=== PATIENT | male | born 1965 | race Caucasian/White ===

== ENCOUNTER 2021-10-16 07:30 | Inpatient (IN) | payer OTHER, SELFPAY ==
[2021-10-16] VITALS (7 sets, daily range): BP systolic 143–150; BP diastolic 87–97; PULSE 80–101; RESP 12–17; TEMP 37.1–37.2; O2SAT 96–100; BMI 28.8; BMI 29.0
--- NOTE | 2021-10-16 07:51 | US_ITS ---
WS: [id number]OTAL ULTRASOUND EXAMINATION CLINICAL INFORMATION: significant swelling/erythema COMPARISON: None. FINDINGS: TESTES Normal in size and echotexture, without focal lesion. Color Doppler: Normal color Doppler flow pattern. Right testes size: 5.3 cm x 3.0 cm x 2.1 cm. Left testes size: 4.9 cm x 3.0 cm x 2.7 cm. EPIDIDYMIDES Enlarged edematous LEFT epididymis with increased vascularity compatible with epididymitis. Right epididymis size: 1.3 cm x cm x cm. Left epididymitis size: 2.7 cm x 1.0 cm x cm. HYDROCELE None. VARICOCELE None. OTHER FINDINGS Incidental 5 x 6 mm LEFT testicular cyst US/US scrotum [id number] IMPRESSION: 1. Enlarged edematous LEFT epididymis with increased vascularity compatible wi th epididymitis. 2. Normal testicles bilaterally
--- NOTE | 2021-10-16 07:53 | W.ED.MALEGU ---
Documented by User: WONG Mark 10/16/21 10:14 HPI - Male Genitourinary General: Chief complaint: General Medical Stated complaint: Testicular Swelling Time Seen by Provider: 10/16/21 07:31 Source: patient Mode of arrival: ambulatory Limitations: no limitations History of Present Illness: Patient is a nice 56-year-old male who presents to ED today with a complaint of scrotal swelling/possible infection. Patient tells me 3 to 4 days ago he noticed a pimple-like lesion to his left testicle that he tried to squeeze/pop. He states since that time the swelling has gotten out of control . Patient tells me he is not a diabetic. He has no previous issues with infections. No known history of staph/MRSA. Patient is not having any penile drainage or dysuria. Any new sexual partners or concern for STDs. MD Complaint: testicle pain and testicle swelling Onset (ago): day(s) Duration: constant Location: right testicle and left testicle Relieving factors: none Associated symptoms: Reports no associated symptoms; Deny dysuria, nausea, urinary incontinence or vomiting Related Data: Sexually active: No Review of Systems Const: Denies: fever(s), chills, body aches, fatigue or malaise Card: Denies: chest pain Resp: Denies: dyspnea GI: Denies: abdominal pain, nausea, vomiting, diarrhea or change in bowel habits : Reports: scrotal swelling; Denies: flank pain, difficulty urinating, dysuria, urinary frequency, urinary urgency, urinary hesitancy or urinary incontinence Musc: Denies: back pain Skin/Breast: Denies: rash Neuro: Denies: headache(s) Physical Exam Const: COMMON NORMALS: no acute distress, average body habitus, patient oriented x3, no limitations, healthy appearing, alert and well nourished GENERAL APPEARANCE: cooperative ORIENTATION/CONSCIOUSNESS: Yes awake, Yes oriented to person, Yes oriented to place and Yes oriented to time HENMT: COMMON NORMALS: normocephalic and atraumatic HEAD & SCALP: normocephalic and atraumatic Resp: COMMON NORMALS: normal respiratory effort and clear to auscultation bilaterally AUSCULTATION: clear to auscultation bilaterally Cardio: COMMON NORMALS: regular rate and regular rhythm RATE: regular rate RHYTHM: regular rhythm GI: COMMON NORMALS: Normal to inspection, nondistended, normoactive bowel sounds present, Soft to palpation, non-tender, No hepatosplenomegaly present and no masses PALPATION: Yes Soft to palpation and Yes No hepatosplenomegaly present : COMMON NORMALS: Yes no CVA tenderness BLADDER/KIDNEY EXAM: Yes no CVA tenderness MEATUS: meatus normal SCROTUM: Yes Scrotal tenderness present, Yes erythematous, Yes edematous and Yes scrotal swelling OTHER: pt has significant scrotal swelling/redness/warmth affecting mainly left scrotum but extending into right; cellulitis does not extend onto abdomen, inguinal regions, or perineal regions; right testicle palpated and normal; left testicle could not be palpated secondary to the amount of swelling present Back/Pelvis: COMMON NORMALS: no CVA tenderness Extremity: COMMON NORMALS: normal to inspection Neuro: LEYDI COMA SCALE: document GCS findings Branch coma scale eye opening: Spontaneous Leydi coma scale verbal response: Orientated Branch coma scale motor response: Obey commands Branch coma scale total score: 15 COMMON NORMALS: patient oriented x3, moves all extremities, no focal motor deficits, no sensory deficits noted and gait normal SENSORIUM/ORIENTATION: Yes alert, Yes oriented to person, Yes oriented to place and Yes oriented to time Course Vital Signs: Vital signs: Vital Signs Temperature 98.7 F 10/16/21 07:45 Pulse Rate 95 10/16/21 07:47 Respiratory Rate 16 10/16/21 07:45 Blood Pressure 150/87 10/16/21 07:47 Pulse Oximetry 99 10/16/21 07:47 MDM - Male Medical Decision Making Patient has a significant scrotal cellulitis clinically. His vital signs are stable. White count is 14.8 with a normal lactate. He does have a CRP of over 140. Glucose is 221. Patient states he is not a known diabetic but it does run in his family. US of his scrotum shows a left epididymitis. I think at this point patient would benefit from hospitalization and IV antibiotics with urology consult. Dr. Powell will speak to hospitalist and Dr. Mc for admission. Lab Data : 10/16/21 08:03 10/16/21 08:03 Radiology Impressions Scrotum Ultrasound 10/16/21 07:51 IMPRESSION: 1. Enlarged edematous LEFT epididymis with increased vascularity compatible with epididymitis. 2. Normal testicles bilaterally Laboratory Results WBC 14.8 10^3/uL (4.0-10.0) H 10/16/21 08:03 RBC 4.60 10^6/uL (4.1-5.3) 10/16/21 08:03 Hgb 14.8 g/dL (11.7-16.6) 10/16/21 08:03 Hct 43.5 % (42.0-52.0) 10/16/21 08:03 MCV 94.6 fl (80-94) H 10/16/21 08:03 MCH 32.2 pg (28.0-34.0) 10/16/21 08:03 MCHC 34.0 g/dL (30.0-36.0) 10/16/21 08:03 RDW 12.4 % (12.1-15.1) 10/16/21 08:03 Plt Count 253 10^3/cmm (130-400) 10/16/21 08:03 MPV 9.4 fL (7.4-10.4) 10/16/21 08:03 Neut % (Auto) 78.1 % 10/16/21 08:03 Lymph % (Auto) 10.9 % 10/16/21 08:03 [place] % (Auto) 9.7 % 10/16/21 08:03 Eos % (Auto) 0.4 % 10/16/21 08:03 Baso % (Auto) 0.4 % 10/16/21 08:03 Neut # (Auto) 11.57 10^3/uL (1.8-7.7) H 10/16/21 08:03 Lymph # (Auto) 1.6 10^3/uL (0.8-4.8) 10/16/21 08:03 [place] # (Auto) 1.4 10^3/uL (0.2-0.9) H 10/16/21 08:03 Eos # (Auto) 0.1 10^3/uL (0.0-0.8) 10/16/21 08:03 Baso # (Auto) 0.1 10^3/uL (0.0-0.1) 10/16/21 08:03 Nucleated RBC % (auto) 0 % 10/16/21 08:03 Nucleated RBCs # 0.0 /100WBC 10/16/21 08:03 Sodium 139 mmol/L (136-145) 10/16/21 08:03 Potassium 3.8 mmol/L (3.5-5.1) 10/16/21 08:03 Chloride 100 mmol/L (98-107) 10/16/21 08:03 Carbon Dioxide 26 mmol/L (22-29) 10/16/21 08:03 Anion Gap 16.8 (5-19) 10/16/21 08:03 BUN 20 mg/dL (6-20) 10/16/21 08:03 Creatinine 0.8 mg/dL (0.7-1.2) 10/16/21 08:03 GFR Calculation 100.0 mL/min (90-130) 10/16/21 08:03 Glucose 221 mg/dL (65-115) H 10/16/21 08:03 Calculated Osmolality 297 mOsm/kg (285-295) H 10/16/21 08:03 Lactic Acid 1.1 mmol/L (0.5-2.2) 10/16/21 08:58 Calcium 8.7 mg/dL (8.5-10.5) 10/16/21 08:03 Total Bilirubin 0.7 mg/dL (0.15-1.2) 10/16/21 08:03 AST 14 U/L (0-40) 10/16/21 08:03 ALT 24 U/L (0-41) 10/16/21 08:03 Alkaline Phosphatase 69 IU/L (40-130) 10/16/21 08:03 C-Reactive Protein 141.7 mg/L (0.0-4.9) H 10/16/21 08:03 Total Protein 7.3 g/dL (6.6-8.7) 10/16/21 08:03 Albumin 4.6 g/dL (3.5-5.2) 10/16/21 08:03 Globulin 2.7 g/dL (1.3-4.6) 10/16/21 08:03 Urine Color Yellow (Yellow) 10/16/21 08:03 Urine Appearance Sl hazy (CLEAR) 10/16/21 08:03 Urine pH 5 (5-7) 10/16/21 08:03 Ur Specific [place] 1.025 (1.005-1.030) 10/16/21 08:03 Urine Protein 1+ (Negative) H 10/16/21 08:03 Urine Glucose (UA) 4+ (Normal) H 10/16/21 08:03 Urine Ketones 1+ (Negative) H 10/16/21 08:03 Urine Blood 2+ (Negative) H 10/16/21 08:03 Urine Nitrate Negative (Negative) 10/16/21 08:03 Urine Bilirubin Neg (Negative) 10/16/21 08:03 Urine Urobilinogen Norm mg/dL (Negative) 10/16/21 08:03 Ur Leukocyte Esterase Negative (Negative) 10/16/21 08:03 Urine RBC 5-10 /hpf (0-2) H 10/16/21 08:03 Urine WBC 0-4 /hpf (0-5) H 10/16/21 08:03 Ur Squamous Epith Cells 0-4 /hpf (0-5) H 10/16/21 08:03 Amorphous Sediment 2+ /hpf 10/16/21 08:03 Urine Bacteria Trace /hpf (NONE) 10/16/21 08:03 Urine Mucus 3+ /hpf 10/16/21 08:03 Discharge Plan Discharge Patient Disposition: Admitted As Inpatient Clinical Impression: Cellulitis of scrotum, Acute epididymitis, Hyperglycemia Condition: Stable Coding Level of Care Code ED Drywall Taper for Chg Fwd Exam Comprehensive Documented by User: Dionisio Powell DO 10/16/21 10:29 HPI - Male Genitourinary General: Chief complaint: General Medical Stated complaint: Testicular Swelling Time Seen by Provider: 10/16/21 07:31 Physical Exam Neuro: LEYDI COMA SCALE: document GCS findings Branch coma scale total score: 15 Course Vital Signs: Vital signs: Vital Signs Temperature 98.7 F 10/16/21 07:45 Pulse Rate 95 10/16/21 07:47 Respiratory Rate 16 10/16/21 07:45 Blood Pressure 150/87 10/16/21 07:47 Pulse Oximetry 99 10/16/21 07:47 MDM - Male Medical Decision Making Patient has a significant scrotal cellulitis clinically. His vital signs are stable. White count is 14.8 with a normal lactate. He does have a CRP of over 140. Glucose is 221. Patient states he is not a known diabetic but it does run in his family. US of his scrotum shows a left epididymitis. I think at this point patient would benefit from hospitalization and IV antibiotics with urology consult. Dr. Powell will speak to hospitalist and Dr. Mc for admission. Patient initially seen by WONG Mark. I seen patient reviewed the chart and examined the patient findings as documented by Ms. Walton. Agree with admission. Large amount of left scrotal swelling and tenderness no palpable abscess ultrasound does not show an abscess shows epididymitis clinical exam also shows significant cellulitis. Patient was started vancomycin we will add to ceftriaxone and doxycycline GC and chlamydia to be done as well. Discussed Dr. Mc and Dr. Barnes. Dr. Mc will admit Cameron to consult for his hyperglycemia. Medical Records I reviewed the patient's medical records. Lab Data I reviewed the patient's lab results. : 10/16/21 08:03 10/16/21 08:03 Radiology Impressions Scrotum Ultrasound 10/16/21 07:51 IMPRESSION: 1. Enlarged edematous LEFT epididymis with increased vascularity compatible with epididymitis. 2. Normal testicles bilaterally Laboratory Results WBC 14.8 10^3/uL (4.0-10.0) H 10/16/21 08:03 RBC 4.60 10^6/uL (4.1-5.3) 10/16/21 08:03 Hgb 14.8 g/dL (11.7-16.6) 10/16/21 08:03 Hct 43.5 % (42.0-52.0) 10/16/21 08:03 MCV 94.6 fl (80-94) H 10/16/21 08:03 MCH 32.2 pg (28.0-34.0) 10/16/21 08:03 MCHC 34.0 g/dL (30.0-36.0) 10/16/21 08:03 RDW 12.4 % (12.1-15.1) 10/16/21 08:03 Plt Count 253 10^3/cmm (130-400) 10/16/21 08:03 MPV 9.4 fL (7.4-10.4) 10/16/21 08:03 Neut % (Auto) 78.1 % 10/16/21 08:03 Lymph % (Auto) 10.9 % 10/16/21 08:03 [place] % (Auto) 9.7 % 10/16/21 08:03 Eos % (Auto) 0.4 % 10/16/21 08:03 Baso % (Auto) 0.4 % 10/16/21 08:03 Neut # (Auto) 11.57 10^3/uL (1.8-7.7) H 10/16/21 08:03 Lymph # (Auto) 1.6 10^3/uL (0.8-4.8) 10/16/21 08:03 [place] # (Auto) 1.4 10^3/uL (0.2-0.9) H 10/16/21 08:03 Eos # (Auto) 0.1 10^3/uL (0.0-0.8) 10/16/21 08:03 Baso # (Auto) 0.1 10^3/uL (0.0-0.1) 10/16/21 08:03 Nucleated RBC % (auto) 0 % 10/16/21 08:03 Nucleated RBCs # 0.0 /100WBC 10/16/21 08:03 Sodium 139 mmol/L (136-145) 10/16/21 08:03 Potassium 3.8 mmol/L (3.5-5.1) 10/16/21 08:03 Chloride 100 mmol/L (98-107) 10/16/21 08:03 Carbon Dioxide 26 mmol/L (22-29) 10/16/21 08:03 Anion Gap 16.8 (5-19) 10/16/21 08:03 BUN 20 mg/dL (6-20) 10/16/21 08:03 Creatinine 0.8 mg/dL (0.7-1.2) 10/16/21 08:03 GFR Calculation 100.0 mL/min (90-130) 10/16/21 08:03 Glucose 221 mg/dL (65-115) H 10/16/21 08:03 Calculated Osmolality 297 mOsm/kg (285-295) H 10/16/21 08:03 Lactic Acid 1.1 mmol/L (0.5-2.2) 10/16/21 08:58 Calcium 8.7 mg/dL (8.5-10.5) 10/16/21 08:03 Total Bilirubin 0.7 mg/dL (0.15-1.2) 10/16/21 08:03 AST 14 U/L (0-40) 10/16/21 08:03 ALT 24 U/L (0-41) 10/16/21 08:03 Alkaline Phosphatase 69 IU/L (40-130) 10/16/21 08:03 C-Reactive Protein 141.7 mg/L (0.0-4.9) H 10/16/21 08:03 Total Protein 7.3 g/dL (6.6-8.7) 10/16/21 08:03 Albumin 4.6 g/dL (3.5-5.2) 10/16/21 08:03 Globulin 2.7 g/dL (1.3-4.6) 10/16/21 08:03 Urine Color Yellow (Yellow) 10/16/21 08:03 Urine Appearance Sl hazy (CLEAR) 10/16/21 08:03 Urine pH 5 (5-7) 10/16/21 08:03 Ur Specific [place] 1.025 (1.005-1.030) 10/16/21 08:03 Urine Protein 1+ (Negative) H 10/16/21 08:03 Urine Glucose (UA) 4+ (Normal) H 10/16/21 08:03 Urine Ketones 1+ (Negative) H 10/16/21 08:03 Urine Blood 2+ (Negative) H 10/16/21 08:03 Urine Nitrate Negative (Negative) 10/16/21 08:03 Urine Bilirubin Neg (Negative) 10/16/21 08:03 Urine Urobilinogen Norm mg/dL (Negative) 10/16/21 08:03 Ur Leukocyte Esterase Negative (Negative) 10/16/21 08:03 Urine RBC 5-10 /hpf (0-2) H 10/16/21 08:03 Urine WBC 0-4 /hpf (0-5) H 10/16/21 08:03 Ur Squamous Epith Cells 0-4 /hpf (0-5) H 10/16/21 08:03 Amorphous Sediment 2+ /hpf 10/16/21 08:03 Urine Bacteria Trace /hpf (NONE) 10/16/21 08:03 Urine Mucus 3+ /hpf 10/16/21 08:03 Discharge Plan Discharge Patient Disposition: Admitted As Inpatient Clinical Impression: Cellulitis of scrotum, Acute epididymitis, Hyperglycemia Condition: Stable Coding Level of Care Code ED Drywall Taper for Magi Fwd Exam Comprehensive
[2021-10-16 08:09] LABS: Basophils # 0.1 10^3/uL (0.0-0.1); Basophils % 0.4 %; Eosinophils # 0.1 10^3/uL (0.0-0.8); Eosinophils % 0.4 %; Hematocrit 43.5 % (42.0-52.0); Hemoglobin 14.8 g/dL (11.7-16.6); Lymphocytes # 1.6 10^3/uL (0.8-4.8); Lymphocytes % 10.9 %; Mean Corpuscular Hemoglobin 32.2 pg (28.0-34.0); Mean Corpuscular Volume 94.6 fl (80-94); Mean Platelet Volume 9.4 fL (7.4-10.4); Monocytes # 1.4 10^3/uL (0.2-0.9); Monocytes % 9.7 %; Neutrophils # 11.57 10^3/uL (1.8-7.7); Neutrophils % 78.1 %; Nucleated Red Blood Cells % 0 %; Platelet Count 253 10^3/cmm (130-400); Red Cell Distribution Width 12.4 % (12.1-15.1); White Blood Count 14.8 10^3/uL (4.0-10.0)
[2021-10-16 08:31] LABS: Alanine Aminotransferase 24 U/L (0-41); Albumin Level 4.6 g/dL (3.5-5.2); Alkaline Phosphatase 69 IU/L (40-130); Anion Gap 16.8 (5-19); Aspartate Amino Transferase 14 U/L (0-40); Blood Urea Nitrogen 20 mg/dL (6-20); C Reactive Protein 141.7 mg/L (0.0-4.9); Calcium 8.7 mg/dL (8.5-10.5); Carbon Dioxide 26 mmol/L (22-29); Chloride 100 mmol/L (98-107); Globulin 2.7 g/dL (1.3-4.6); Glucose 221 mg/dL (65-115); Osmolality Calculated 297 mOsm/kg (285-295); Potassium 3.8 mmol/L (3.5-5.1); Sodium 139 mmol/L (136-145); Total Bilirubin 0.7 mg/dL (0.15-1.2); Total Protein 7.3 g/dL (6.6-8.7)
[2021-10-16] MEDS: vancomycin 1,000 MG in sodium chloride 0.9% 250 ML 250 MG IV (08:52)
--- NOTE | 2021-10-16 09:08 | PC.PHAR ---
pt states he takes care of his own medications-pt states he got a steroid shot on -pt states he takes gabapentin 300mg tid pt states its an old rx-called [facility] [facility] [place] [phone] they state they have never filled this medication for the pt ext med history doesnt show when last filled-notes are made in the pharmacy comments
[2021-10-16 09:23] LABS: Lactic Sepsis W/Reflex 1.1 mmol/L (0.5-2.2)
[2021-10-16 09:31] LABS: Protein Urine 1+ (Negative); Specific Gravity, Urine 1.025 (1.005-1.030); Urine Appearance SL Hazy (CLEAR); Urine Color Yellow (Yellow); pH Urine 5 (5-7)
[2021-10-16 09:32] LABS: Add Urine Culture? No; Add Urine Microscopic? YES; Amorphous Sediment Urine 2+ /hpf; Bacteria Urine TRACE /hpf; Bilirubin Urine Neg (Negative); Blood Urine 2+ (Negative); Glucose Urine UA 4+ (Normal); Ketones Urine 1+ (Negative); Leukocyte Esterase Urine Negative (Negative); Mucus Urine 3+ /hpf; Nitrate Urine Negative (Negative); Squamous Epithelial Cell Urine 0-4 /hpf (0-5); Urobilinogen Urine Norm (Negative); WBC Urine 0-4 /hpf (0-5)
[2021-10-16] MEDS: cefTRIAXone 1,000 MG in sodium chloride 0.9% (plus) 50 ML 100 MG IV (10:22)
--- NOTE | 2021-10-16 10:32 | PM.CONSULT ---
Providers/Reason For Consult Consulting Physician/Specialty*: Eligio Barnes MD, hospitalist Reason for Consult*: Elevated sugar Requesting Physician: Dr. Mc History of Present Illness History of Present Illness Anshul Craig is a 56 year old male who presented to the emergency department with complaints of swelling in the left scrotal area for the last 3 days. Perhaps some low-grade temperatures. No nausea, vomiting. Reports he felt a hard area behind the left testicle initially. Denies any particular injury. Denies any dysuria, discharge. Reports he has never had a history of diabetes. Does relate family history of diabetes. States he has some chronic back issues and got a steroid injection in his back last week. Review of Systems General: Reports: 10 or more systems reviewed and unremarkable except in HPI and below Const: Reports: fever(s); Denies: chills Eyes: Denies: change in vision ENMT: Denies: throat pain Card: Denies: chest pain Resp: Denies: dyspnea GI: Denies: abdominal pain : Denies: flank pain Skin/Breast: Denies: rash Neuro: Denies: headache(s) Psych: Denies: anxiety or depression Endo: Denies: polyuria Madan/Lymph: Denies: easy bruising All/Imm: Denies: urticaria Medications/Allergies Home Medications Medication Instructions Recorded Confirmed Last Taken Type albuterol sulfate 90 mcg/actuation 2 puff INHALATION Q6H PRN 10/16/21 10/16/21 Unknown History aerosol inhaler gabapentin 300 mg capsule 300 mg PO TID 10/16/21 10/16/21 10/16/21 06:00 History hydrocodone 10 mg-acetaminophen 1 tab PO Q4H PRN 10/16/21 10/16/21 10/16/21 06:00 History 325 mg tablet Allergies Allergy/AdvReac Type Severity Reaction Status Date / Time No Known Allergies Allergy Verified 10/16/21 09:05 PFSH Acute PFSH: Medical History (Updated 10/16/21 @ 13:32 by Eligio Barnes MD) Chronic back pain Surgical History (Updated 10/16/21 @ 13:33 by Eligio Barnes MD) History of back surgery Family History Other Diabetes Social History (Updated 10/16/21 @ 13:33 by Eligio Barnes MD) Smoking and tobacco status: never smoked Alcohol intake: current Alcohol intake frequency: 0-2 Drinks per Day Vitals/I&O/Wt Last Vital Signs Temp 98.7 F 10/16/21 07:45 Pulse 95 10/16/21 07:47 Resp 16 10/16/21 07:45 BP 150/87 10/16/21 07:47 Pulse Ox 99 10/16/21 07:47 10/15/21 10/16/21 10/16/21 22:59 06:59 14:59 Intake Total 250 / 250 Balance 250 / 250 Weight last 48 hrs Weight 93.894 kg Physical Exam Narrative: General exam is a white male, no distress HEENT: Pupils equally round. Oropharynx clear. Neck is supple no lymphadenopathy or thyromegaly Cardiovascular regular rate and rhythm, without murmur. No S3 or S4 Lungs clear no wheezing or crackles Abdomen is soft nontender positive bowel sounds. No obvious organomegaly exam demonstrates swollen left scrotum, with erythema and induration Extremities no cyanosis clubbing or edema, cap refill brisk Skin no rash Neuro no obvious focal deficits. Data : 10/16/21 08:03 10/16/21 08:03 Other Labs: LFTs are normal Hemoglobin A1c checked and 6.5 CRP 141 Urinalysis 5-10 reds, 0-4 whites Calcium and lactate are normal TSH checked and normal Scrotal ultrasound demonstrates enlarged edematous left epididymis with increased vascularity consistent with epididymitis Blood culture was obtained GC and Chlamydia cultures were ordered. Micro: Microbiology 10/16/21 08:25 Blood Culture - Preliminary Blood SPECIMEN COLLECTED A&P Assessment and plan (1) Acute epididymitis: Admitted to urology He received vancomycin, ceftriaxone, doxycycline in the emergency department. Defer antibiotic treatment to urology. Status: Acute (2) Hyperglycemia: Blood sugar elevated, 221 on admission. This was not fasting. Hemoglobin A1c has now been checked in 6.5. TSH is normal. He did receive an injection of steroids last week which could have impacted sugar as well Change to consistent carb diet Will need a hemoglobin A1c in 3 months Will consumer credit counselor him on possibility of metformin for prediabetes/diabetes At this point no need for sliding scale insulin. Check sugar with a.m. labs. Status: Acute (3) Chronic back pain: His Neurontin has been ordered which he takes chronically. Status: Acute Plan Thank you for this consultation. I will follow up tomorrow morning and determine if he would like to initiate metformin as an outpatient, and ensure his morning blood sugar is improved. Consult Attestations Medical Necessity Statement: As per primary Coding Level of Care Code Acute Security Engineer for [employer] Diagnoses Acute epididymitis N45.1 Hyperglycemia R73.9 Chronic back pain M54.9; G89.29
--- NOTE | 2021-10-16 10:56 | PM.HP ---
Providers/Chief Complaint Admitting Physician: Jesusita Chief Complaint: Left Epididymitis History of Present Illness Anshul Craig is a 56 year old male who I evaluated for the first time today at the request of Dr. Adam in the [facility] ED. Primary complaint was left hemiscrotal swelling ongoing and progressive over the last 3 to 4 days. He thought he had a pimple on the very posterior portion of his scrotum and made an attempt at drainage. The area of swelling though has occurred mostly involving the internal left hemiscrotal contents. Not a lot of pain. No fever or chills. Denies any voiding symptoms dysuria gross hematuria etc. no prior similar symptoms. Work-up: Scrotal ultrasound: Left hydrocele. No obvious scrotal wall or intra scrotal abscess. Findings are consistent with LEFT EPIDIDYMITIS. White count is 14 Glucose: 221 Creatinine: 0.8 Physical exam: Revealed left hemiscrotal erythema and swelling with induration of the contents involved in the left kidney scrotum/tunica vaginalis. There does not appear to be any obvious scrotal wall abscess but it cannot be completely ruled out. No evidence of drainage wound or perforation. Plan: Admit for antibiotics. Hospitalist consulted for evaluation of possible diabetes. Review of Systems Const: Denies: fever(s) or chills Eyes: Denies: eye discharge ENMT: Denies: hoarseness Card: Denies: chest pain Resp: Denies: dyspnea GI: Denies: abdominal pain or nausea : Denies: difficulty urinating, dysuria, urinary urgency, genital lesions or penile discharge Musc: Denies: joint warmth or deformity Skin/Breast: Reports: other (See HPI); Denies: rash Neuro: Denies: confusion or Slurred speech present Psych: Denies: anxiety or depression Madan/Lymph: Denies: enlarged lymph nodes All/Imm: Denies: acute wheezing Medications/Allergies Home Medications Medication Instructions Recorded Confirmed Last Taken Type albuterol sulfate 90 mcg/actuation 2 puff INHALATION Q6H PRN 10/16/21 10/16/21 Unknown History aerosol inhaler gabapentin 300 mg capsule 300 mg PO TID 10/16/21 10/16/21 10/16/21 06:00 History hydrocodone 10 mg-acetaminophen 1 tab PO Q4H PRN 10/16/21 10/16/21 10/16/21 06:00 History 325 mg tablet Allergies Allergy/AdvReac Type Severity Reaction Status Date / Time No Known Allergies Allergy Verified 10/16/21 09:05 PFSH Acute PFSH: Medical History Chronic back pain Surgical History History of back surgery Family History Other Diabetes Social History Smoking and tobacco status: never smoked Alcohol intake: current Alcohol intake frequency: 0-2 Drinks per Day Vitals/I&O/Wt Last Vital Signs Temp 98.7 F 10/16/21 07:45 Pulse 95 10/16/21 07:47 Resp 16 10/16/21 07:45 BP 150/87 10/16/21 07:47 Pulse Ox 99 10/16/21 07:47 10/15/21 10/16/21 10/16/21 22:59 06:59 14:59 Intake Total 250 / 250 Balance 250 / 250 Weight last 48 hrs Weight 207 lb Physical Exam Const: COMMON NORMALS: no acute distress, alert and well nourished GENERAL APPEARANCE: well kempt and well developed ORIENTATION/CONSCIOUSNESS: not confused Neck/C-Spine: COMMON NORMALS: full ROM GENERAL: Yes normal visual inspection Lymph: OTHER: No lymphadenopathy Resp: COMMON NORMALS: normal respiratory effort EFFORT & INSPECTION: No labored and No Actively coughing : OTHER: Circumcised phallus without lesion. No meatal discharge. Swollen scrotum with erythema. The left hemiscrotal contents are indurated and palpably abnormal. Mostly consistent with fluid within the tunica vaginalis on the left side. The right testicle and epididymis feels normal. No clear abscess. No scrotal wall abscess can be identified. No break in the skin or discharge Back/Pelvis: OTHER: No CVA tenderness Extremity: NARRATIVE EXTREMITY EXAM: Good range of motion. Neuro: SENSORIUM/ORIENTATION: Yes alert Psych: COMMON NORMALS: mental status grossly normal APPEARANCE: Yes grossly normal and Yes well kempt ATTITUDE: Yes calm and Yes engaged Skin: COMMON NORMALS: no rashes or lesions noted and no jaundice Data : 10/17/21 02:39 10/17/21 02:39 Micro: Microbiology 10/16/21 08:25 Blood Culture - Preliminary Blood SPECIMEN COLLECTED A&P Assessment and plan (1) Acute epididymitis: Admit for IV antibiotics. Culture sent. Status: Acute (2) Hyperglycemia: New finding. No prior diagnosis of diabetes. Did have a recent steroid injection in his back. Status: Acute (3) Chronic back pain: Status: Acute Attestations Medical Necessity Statement*: Admit for IV antibiotics. Coding Level of Care Code Acute Assistant Food Service Director for [facility] Fwd Exam Detailed Diagnoses Acute epididymitis N45.1 Hyperglycemia R73.9 Chronic back pain M54.9; G89.29
[2021-10-16] MEDS: doxycycline 100 MG in sodium chloride 0.9% (plus) 100 ML IV (11:01)
[2021-10-16 11:03] LABS: Thyroid Stimulating Hormone 1.89 uIU/mL (0.27-4.20)
[2021-10-16 11:19] LABS: Estmated Average Glucose 140; Hemoglobin A1C 6.5 % (4.0-6.0)
[2021-10-16] MEDS: sodium chloride 0.9% 1,000 ML 100 ML IV ×2 (12:59→22:11)
[2021-10-16] MEDS: gabapentin 300 mg Capsule PO ×2 (15:13→21:24)
[2021-10-16] MEDS: HYDROcodone-acetaminophen 10-325 mg Tablet 1 TAB PO ×2 (15:13→21:24)
--- NOTE | 2021-10-16 16:56 | PC.NURSE ---
Patient refusing to changed out of street clothes and put on a gown. Patient also states that his underwear have his scrotum elevated and he does not need the towels. Education provided to patient on the importance of both.
[2021-10-16] MEDS: doxycycline 100 mg Tablet PO (17:14)
[2021-10-17] VITALS (24 sets, daily range): BP systolic 107–159; BP diastolic 66–101; PULSE 71–88; RESP 11–20; TEMP 36.6–37.3; O2SAT 89–97
[2021-10-17 03:11] LABS: Basophils # 0.1 10^3/uL (0.0-0.1); Basophils % 0.4 %; Eosinophils # 0.1 10^3/uL (0.0-0.8); Eosinophils % 0.9 %; Hematocrit 39.6 % (42.0-52.0); Hemoglobin 13.3 g/dL (11.7-16.6); Lymphocytes # 2.1 10^3/uL (0.8-4.8); Mean Corpuscular HGB Conc 33.6 g/dL (30.0-36.0); Mean Corpuscular Hemoglobin 32.1 pg (28.0-34.0); Mean Corpuscular Volume 95.7 fl (80-94); Mean Platelet Volume 9.4 fL (7.4-10.4); Monocytes # 1.2 10^3/uL (0.2-0.9); Monocytes % 8.3 %; Neutrophils # 10.33 10^3/uL (1.8-7.7); Neutrophils % 74.8 %; Nucleated Red Blood Cells % 0 %; Platelet Count 252 10^3/cmm (130-400); Red Blood Count 4.14 10^6/uL (4.1-5.3); Red Cell Distribution Width 12.5 % (12.1-15.1); White Blood Count 13.8 10^3/uL (4.0-10.0)
[2021-10-17 03:39] LABS: Alanine Aminotransferase 18 U/L (0-41); Albumin Level 3.7 g/dL (3.5-5.2); Alkaline Phosphatase 57 IU/L (40-130); Anion Gap 14.2 (5-19); Aspartate Amino Transferase 11 U/L (0-40); Blood Urea Nitrogen 16 mg/dL (6-20); Calcium 9.2 mg/dL (8.5-10.5); Carbon Dioxide 25 mmol/L (22-29); Chloride 103 mmol/L (98-107); Globulin 3.3 g/dL (1.3-4.6); Glomerular Filtration Rate 116.7 mL/min (90-130); Glucose 169 mg/dL (65-115); Osmolality Calculated 291 mOsm/kg (285-295); Potassium 4.2 mmol/L (3.5-5.1); Sodium 138 mmol/L (136-145); Total Bilirubin 0.4 mg/dL (0.15-1.2)
--- NOTE | 2021-10-17 06:46 | PC.NURSE ---
Patient slept well throughout the night. No complaints of pain in the scrotum. Patient called this nurse in this morning after getting up to the bathroom and noticed he had some discharge from the posterior side of his scrotum where the pimple-like area is that he had tried to squeeze the day prior. The discharge is a slightly brownish-yellow pus color. No odor was noticed from the discharge at this time.
--- NOTE | 2021-10-17 07:44 | PM.PN ---
Subjective Subjective: Complained of the development of purulent drainage from his scrotum where he had previously placed a needle. This would point more toward a scrotal abscess as opposed to epididymitis although epididymitis could have been the originating issue. No other concerning symptoms. Recommended incision and drainage of abscess when time available in the operating room today. I discussed the procedure in detail benefits and risks explained as well as alternatives. Discussed perioperative limitations and expectations and wound care. He agreed and has given informed consent to proceed as above. Medications: Reviewed: Yes Vitals/I&O/Wt Last Vital Signs Temp 98.4 F 10/17/21 04:00 Pulse 71 10/17/21 04:00 Resp 18 10/17/21 04:00 BP 121/73 10/17/21 04:00 Pulse Ox 97 10/17/21 04:00 10/16/21 10/17/21 10/17/21 22:59 06:59 14:59 Intake Total 1400 / 1800 Balance 1400 / 1800 Weight last 48 hrs Weight 208 lb 5 oz Weight 207 lb Physical Exam Const: COMMON NORMALS: no acute distress, alert and well nourished GENERAL APPEARANCE: well kempt and well developed ORIENTATION/CONSCIOUSNESS: not confused Neck/C-Spine: COMMON NORMALS: full ROM GENERAL: Yes normal visual inspection Lymph: OTHER: No lymphadenopathy Resp: COMMON NORMALS: normal respiratory effort EFFORT & INSPECTION: No labored and No Actively coughing : OTHER: Circumcised phallus without lesion. No meatal discharge. There is decreased swelling and erythema but there is now drainage from a midline lower scrotal breakpoint in the skin. Purulent drainage. This began last night. He associates this location with where he previously tried to drain a pebble. No evidence of Rosendo's etc. Skin looks healthy although erythematous and edematous. No crepitus Back/Pelvis: OTHER: No CVA tenderness Extremity: NARRATIVE EXTREMITY EXAM: Good range of motion. Neuro: SENSORIUM/ORIENTATION: Yes alert Psych: COMMON NORMALS: mental status grossly normal APPEARANCE: Yes grossly normal and Yes well kempt ATTITUDE: Yes calm and Yes engaged Skin: COMMON NORMALS: no rashes or lesions noted and no jaundice Data : 10/17/21 02:39 10/17/21 02:39 Micro: Microbiology 10/16/21 11:00 Blood Culture - Preliminary Blood SPECIMEN COLLECTED 10/16/21 08:25 Blood Culture - Preliminary Blood SPECIMEN COLLECTED A&P Assessment and plan (1) Scrotal abscess: Spontaneous drainage. Clarifies scrotal abscess as a component of this infection at least. Unclear whether this involves just the scrotal wall or deep scrotal spaces originating from epididymitis. Recommended incision and drainage exploration irrigation and packing. Will pursue time in the operating room when available. Status: Acute (2) Acute epididymitis: Status: Acute Attestations Medical Necessity Statement*: Will require surgical intervention. Coding Level of Care Code Acute Personalized Living Assistant for Magi Gillis Diagnoses Scrotal abscess N49.2 Acute epididymitis N45.1
--- NOTE | 2021-10-17 08:08 | PM.PN ---
Subjective Subjective: Reports he has had a little scrotal drainage. Has some pain. No other complaints. We discussed his elevated A1c for quite a while at bedside. Medications: Reviewed: Yes Vitals/I&O/Wt Last Vital Signs Temp 99.2 F 10/17/21 08:00 Pulse 81 10/17/21 08:00 Resp 18 10/17/21 08:00 BP 148/89 10/17/21 08:00 Pulse Ox 97 10/17/21 08:00 10/16/21 10/17/21 10/17/21 22:59 06:59 14:59 Intake Total 1400 / 1800 Balance 1400 / 1800 Weight last 48 hrs Weight 94.489 kg Weight 93.894 kg Physical Exam Narrative: General exam is a white male, no distress Neck is supple no lymphadenopathy or thyromegaly Cardiovascular regular rate and rhythm, without murmur. No S3 or S4 Lungs clear no wheezing or crackles Abdomen is soft nontender positive bowel sounds. No obvious organomegaly Scrotum not examined today. Extremities no cyanosis clubbing or edema, cap refill brisk Data : 10/17/21 02:39 10/17/21 02:39 Micro: Microbiology 10/16/21 11:00 Blood Culture - Preliminary Blood SPECIMEN COLLECTED 10/16/21 08:25 Blood Culture - Preliminary Blood SPECIMEN COLLECTED A&P Assessment and plan (1) Acute epididymitis: Admitted to urology He received vancomycin, ceftriaxone, doxycycline in the emergency department. Patient is currently receiving doxycycline. Urology is taking him to surgery today. There is concern of possible scrotal abscess as he is now having some drainage. Defer antibiotic treatment to urology. GC, chlamydia pending Status: Acute (2) Hyperglycemia: Blood sugar elevated, 221 on admission. This was not fasting. Hemoglobin A1c has now been checked in 6.5. TSH is normal. He did receive an injection of steroids last week which could have impacted sugar as well Discussed with him he should follow consistent carb diet Discussed with him treatment with metformin, and its risks and benefits. He elects to initiate this on discharge. Will need a hemoglobin A1c in 3 months Will rehab/pre vocational counselor him on possibility of metformin for prediabetes/diabetes At this point no need for sliding scale insulin. Check sugar with a.m. labs. Status: Acute (3) Chronic back pain: His Neurontin has been ordered which he takes chronically. Status: Acute Plan I will sign off. Please call me with any questions or concerns. Attestations Medical Necessity Statement*: As per primary Coding Level of Care Code Acute Microstrategy Reports Developer for Magi Gillis Diagnoses Acute epididymitis N45.1 Hyperglycemia R73.9 Chronic back pain M54.9; G89.29
[2021-10-17] MEDS: HYDROcodone-acetaminophen 10-325 mg Tablet 1 TAB PO ×2 (08:27→15:52)
[2021-10-17] MEDS: gabapentin 300 mg Capsule PO ×3 (08:27→19:45)
[2021-10-17] MEDS: doxycycline 100 mg Tablet PO ×2 (08:27→17:19)
[2021-10-17] MEDS: sodium chloride 0.9% 1,000 ML 30 ML IV (12:07)
--- NOTE | 2021-10-17 12:23 | ANES.PREANE2 ---
Pre-Anesthetic Assessment Height/Weight: Height 1.8 m Weight 94.489 kg Temp Pulse Resp BP Pulse Ox 98 F 88 20 H 146/86 97 10/17/21 11:51 10/17/21 11:51 10/17/21 11:51 10/17/21 11:51 10/17/21 11:51 Operation Date: 10/17/21 12:30 Proposed Procedures p Incision And Drainage scrotal abscess(Not Applicable) - Bautista Mc MD Familial anesthetic complications: None Was Beta Brock taken within 24 hours: N/A Was Clonidine taken within 24 hours: N/A Last intake: Intake Last Liquid Date 10/17/21 Last Liquid Time 06:00 Last Solid Date 10/16/21 Last Solid Time 18:00 Social No alcohol and No tobacco Exam alert, oriented x 3, clear to auscultation bilaterally and regular rate & rhythm Airway Mallampati: Class III Dentition: other (missing) Pulmonary None reported CV/HEM None reported None reported Hepatic None reported GI None reported Metabolic None reported Musc/skel None reported Neuropsych None reported Anesthetic Plan ASA status: 1 Anesthesia: General Risk of > 500 ml blood loss (7ml/kg in children): No Medications/Allergies Home Medications Medication Instructions Recorded Confirmed Last Taken Type albuterol sulfate 90 mcg/actuation 2 puff INHALATION Q6H PRN 10/16/21 10/16/21 Unknown History aerosol inhaler gabapentin 300 mg capsule 300 mg PO TID 10/16/21 10/16/21 10/16/21 06:00 History hydrocodone 10 mg-acetaminophen 1 tab PO Q4H PRN 10/16/21 10/16/21 10/16/21 06:00 History 325 mg tablet Allergies Allergy/AdvReac Type Severity Reaction Status Date / Time No Known Allergies Allergy Verified 10/16/21 09:05 Current Medications Generic Name Dose Route Start Last Admin Trade Name Freq PRN Reason Stop Dose Admin Hydrocodone Bitart/Acetaminophen 1 tab 10/16/21 12:26 10/17/21 08:27 Hydrocodone-Acetaminophen 10-325 Mg Tablet PO 1 tab Q4H PRN Administration MODERATE Pain Doxycycline Monohydrate 100 mg 10/16/21 18:00 10/17/21 08:27 Doxycycline 100 Mg Tablet PO 100 mg BID JULIA Administration Protocol Gabapentin 300 mg 10/16/21 15:00 10/17/21 08:27 Gabapentin 300 Mg Capsule PO 300 mg TID JULIA Administration Sodium Chloride 1,000 mls @ 100 mls/hr 10/16/21 12:26 10/16/21 22:11 Sodium Chloride 0.9% IV 100 mls/hr .Q10H JULIA Administration Sodium Chloride 1,000 mls @ 30 mls/hr 10/17/21 12:00 10/17/21 12:07 Sodium Chloride 0.9% IV 10/18/21 11:59 30 mls/hr .Q24H JULIA Administration PFSH Anesthesia Medical History Chronic back pain Surgical History History of back surgery Family History Other Diabetes Social History Smoking and tobacco status: never smoked Alcohol intake: current Alcohol intake frequency: 0-2 Drinks per Day Data Anesthesia : 10/17/21 02:39 10/17/21 02:39 Short CBC 10/16/21 10/17/21 Range/Units 08:03 02:39 WBC 14.8 H 13.8 H (4.0-10.0) 10^3/uL Hgb 14.8 13.3 (11.7-16.6) g/dL Hct 43.5 39.6 L (42.0-52.0) % MCV 94.6 H 95.7 H (80-94) fl Plt Count 253 252 (130-400) 10^3/cmm Neut % (Auto) 78.1 74.8 % Neut # (Auto) 11.57 H 10.33 H (1.8-7.7) 10^3/uL BMP 10/16/21 10/17/21 08:03 02:39 Sodium 139 138 Potassium 3.8 4.2 Chloride 100 103 Carbon Dioxide 26 25 BUN 20 16 Creatinine 0.8 0.7 Glucose 221 H 169 H Calcium 8.7 9.2 Liver Function 10/16/21 10/17/21 Range/Units 08:03 02:39 Total Bilirubin 0.7 0.4 (0.15-1.2) mg/dL AST 14 11 (0-40) U/L ALT 24 18 (0-41) U/L Alkaline Phosphatase 69 57 (40-130) IU/L Albumin 4.6 3.7 (3.5-5.2) g/dL Urine 10/16/21 Range/Units 08:03 Urine Color Yellow (Yellow) Urine Appearance Sl hazy (CLEAR) Urine pH 5 (5-7) Ur Specific [place] 1.025 (1.005-1.030) Urine Protein 1+ H (Negative) Urine Glucose (UA) 4+ H (Normal) Urine Ketones 1+ H (Negative) Urine Nitrate Negative (Negative) Urine Bilirubin Neg (Negative) Ur Leukocyte Esterase Negative (Negative) Urine RBC 5-10 H (0-2) /hpf Urine WBC 0-4 H (0-5) /hpf Coags 10/16/21 08:03 C-Reactive Protein 141.7 H Microbiology 10/16/21 11:00 Blood Culture - Preliminary Blood NEGATIVE TO DATE 10/16/21 08:25 Blood Culture - Preliminary Blood NEGATIVE TO DATE Cardiac Studies: No Data to Display
--- NOTE | 2021-10-17 13:40 | PM.OP ---
Operative Report Date of procedure: October 17, 2021 Pre-op diagnosis: Scrotal abscess Post-op diagnosis: Deep space scrotal abscess Procedure done: 1. Incision and drainage of deep scrotal abscess Pathology: Cultures Surgeon: Jesusita Anesthesia: General Urine output: Not measured Complications: None Findings: Still draining purulent material prior to opening. Large abscess pocket extrinsic to the tunica vaginalis was identified. Loculations broken and aggressively irrigated with 3 L of saline. Packed. Brief History: Anshul is a 56-year-old white male who presented with a severely swollen left hemiscrotum but no clear initial evidence of skin breakage or drainage. It was presumed that this was related to epididymitis and he was admitted for IV antibiotics. On the day of the procedure he was noted to have purulent drainage initiated and was recommended to go to the operating room urgently for incision and drainage of scrotal abscess. Procedure: After urgent evaluation examination and obtaining of informed consent he was taken to the operating suite on 10/17/2021 where general anesthesia was administered without difficulty after appropriate timeout was performed, SCDs confirmed to be functioning, preoperative antibiotics administered, beta-liat protocol confirmed. Prepped and draped in usual sterile fashion in dorsolithotomy position. The area of purulent drainage was identified. Hemostats were passed into this puncture area and spread in order to allow further drainage which was then cultured. A horizontal incision was made in the skin lines to open this area up enough to easily pass a finger into break up loculations. The pocket extended to the superior aspect of the scrotum but did not involve the internal aspect of the tunica vaginalis. The pocket also extended medially to the septum and then posteriorly behind the tunica vaginalis. I could not palpate any distinct abnormality of the epididymis on that side. After adequate opening of the wound a Pulsavac irrigation system was utilized to irrigate the wound with 3 L of normal saline. Hemostasis was good and the wound was then packed with 3 inch Cornel dressing. He tolerated procedure well without complications and was awakened in the operating room and returned to the recovery room in stable condition. PLANS: 1. Continue inpatient management tonight. We will switch to inpatient status. 2. Train in dressing changes and when he can accomplish this adequately we will discharge. Anticipate that this will be tomorrow. 3. Continue antibiotics
[2021-10-17] MEDS: fentaNYL 50 mcg/mL INJ 2mL IVP (13:57)
--- NOTE | 2021-10-17 14:58 | PC.NURSE ---
Patient returned from PACU. Patient is AAOx3. Patient rates his pain 5/10 on pain scale.
--- NOTE | 2021-10-17 15:10 | PC.NURSE ---
Pt ventilating well, VS within normal limits, see documentation. Reported to his medsurg nurse, Dewayne, pt c/o 11/24 pain of scrotum when he is asked.
[2021-10-17] MEDS: levoFLOXacin 500 mg Tablet PO (15:52)
[2021-10-17] MEDS: sodium chloride 0.9% 1,000 ML 100 ML IV (17:18)
--- NOTE | 2021-10-17 18:56 | ANE.PACU2 ---
Inpatient post-anesthesia follow up: Airway intact: Yes Vital signs: Temperature 98.3 F Pulse Rate 75 Respiratory Rate 18 Blood Pressure 139/83 Pulse Oximetry 96 Oxygen Delivery Me thod Room Air Oxygen Flow Rate 3 Fraction of Inspir ed Oxygen Hydration adequate: Yes Nausea and vomiting: No Pain level: 1 Mental status: Baseline
--- NOTE | 2021-10-18 02:11 | PC.NURSE ---
Addendum entered by Laura Marshall RN 10/18/21 02:11: Patient alert and oriented x4. Original Note: Patient refusing to allow nurse to assess scrotum.
[2021-10-18 03:14] LABS: Basophils % 0.1 %; Hematocrit 40.5 % (42.0-52.0); Hemoglobin 13.5 g/dL (11.7-16.6); Lymphocytes # 1.1 10^3/uL (0.8-4.8); Lymphocytes % 9.4 %; Mean Corpuscular HGB Conc 33.3 g/dL (30.0-36.0); Mean Corpuscular Hemoglobin 31.8 pg (28.0-34.0); Mean Corpuscular Volume 95.3 fl (80-94); Mean Platelet Volume 9.3 fL (7.4-10.4); Monocytes # 0.5 10^3/uL (0.2-0.9); Monocytes % 3.9 %; Neutrophils # 10.46 10^3/uL (1.8-7.7); Nucleated Red Blood Cells % 0 %; Platelet Count 303 10^3/cmm (130-400); Red Blood Count 4.25 10^6/uL (4.1-5.3); Red Cell Distribution Width 12.2 % (12.1-15.1); White Blood Count 12.2 10^3/uL (4.0-10.0)
[2021-10-18 03:31] VITALS: PULSE 68
[2021-10-18 03:48] VITALS: BP 123/73; PULSE 73; RESP 16; TEMP 37; O2SAT 97
[2021-10-18] MEDS: levoFLOXacin 500 mg Tablet PO (03:57)
[2021-10-18] MEDS: sodium chloride 0.9% 1,000 ML 100 ML IV (03:58)
[2021-10-18 06:42] LABS: Glucose Point of Care 161 mg/dL (70-110)
[2021-10-18] MEDS: LORazepam 2 mg/mL INJ 1 mL 0.5 MG IVP (08:07)
[2021-10-18] MEDS: morphine 4 mg/mL SDV 1 mL IVP (08:07)
[2021-10-18 08:30] VITALS: PULSE 89; RESP 17; O2SAT 96
--- NOTE | 2021-10-18 08:48 | PM.DCS ---
Discharge Providers Date of Admission: 10/16/21 10:26 Date of Discharge: October 18, 2021 Attending Provider at Admission: Bautista Mc MD Attending Provider at Discharge: Bautista Mc MD Diagnoses at Discharge Discharge Diagnosis (1) Scrotal abscess: Details from hospital stay: Initially not identified on ultrasound. Physical findings were suspicious. Ultimately developed some spontaneous drainage which led to incision and drainage and breaking up of abscess loculations and routine wound care thereafter. Status: Resolved (2) Acute epididymitis: Details from hospital stay: We will continue Levaquin at discharge. Status: Acute (3) Hyperglycemia: Details from hospital stay: Evaluated by Dr. Root of the hospital service. Metformin was initiated Status: Acute (4) Chronic back pain: Status: Acute Reason for Visit Reason for Visit: Left Epididymitis Brief History: Several days of increasing redness and swelling in the left hemiscrotum. Mild discomfort. No fever or chills. No prior similar episodes. He did notice a small pimple on the posterior aspect of his scrotum and he tried to pop it with a needle. White count was elevated in the emergency department. Physical exam was suspicious for left hemiscrotal epididymitis versus scrotal abscess. Hospital Course Hospital Course Presented to the emergency department with several days of swelling in the left hemiscrotum. Accompanied by redness but no fever or chills and no other systemic symptoms. Did have some pain. Ultrasound showed left epididymitis. Physical exam showed a tense left hemiscrotum but could not clearly see any evidence of a pointing abscess. He was admitted for IV antibiotics. Hospital day #2 he began to have some drainage from the posterior aspect of his scrotum confirming an abscess. Taken to the operating room on that day for incision and drainage. A large loculated abscess was identified. Loculations were broken, the wound copiously irrigated, and packed. On postop day #1 dressing was changed. There is no foul odor. Minor oozing but no significant bleeding. Repacked lightly with 1 inch Cornel. Patient was instructed on dressing changes. Encouraged to change the dressing once a day or more often in as needed. Follow-up as scheduled for 10/23/2021. He was deemed an appropriate candidate for further self-care at home. Discharged in stable condition. Physical Exam Narrative: Alert, oriented no acute distress Abdomen is soft nontender Respiratory nonlabored, no wheezes Neurologic with normal extremity movement and no focal defects showed decreased erythema and swelling. No foul drainage from the incision with dressing changes. Overall doing well. Discharge Data Studies Completed and Pending Completed Studies During Hospitalization Category Date Time Status US scrotum [id number] Urgent Ultrasound 10/16/21 07:51 Completed Pending at discharge Category Date Time Status Abscess Culture and Gram Stain Routine Lab 10/17/21 13:37 Results Anaerobic Culture Routine Lab 10/17/21 13:37 Results Blood Culture Stat Lab 10/16/21 08:25 Results Blood Culture Stat Lab 10/16/21 11:00 Results Chlamydia/Gonorrh RNA,TMA URO Stat Lab 10/16/21 11:20 Ordered Radiology Impressions Scrotum Ultrasound 10/16/21 07:51 IMPRESSION: 1. Enlarged edematous LEFT epididymis with increased vascularity compatible with epididymitis. 2. Normal testicles bilaterally Laboratory Results WBC 12.2 10^3/uL (4.0-10.0) H 10/18/21 02:56 RBC 4.25 10^6/uL (4.1-5.3) 10/18/21 02:56 Hgb 13.5 g/dL (11.7-16.6) 10/18/21 02:56 Hct 40.5 % (42.0-52.0) L 10/18/21 02:56 MCV 95.3 fl (80-94) H 10/18/21 02:56 MCH 31.8 pg (28.0-34.0) 10/18/21 02:56 MCHC 33.3 g/dL (30.0-36.0) 10/18/21 02:56 RDW 12.2 % (12.1-15.1) 10/18/21 02:56 Plt Count 303 10^3/cmm (130-400) 10/18/21 02:56 MPV 9.3 fL (7.4-10.4) 10/18/21 02:56 Neut % (Auto) 86.0 % 10/18/21 02:56 Lymph % (Auto) 9.4 % 10/18/21 02:56 Davis % (Auto) 3.9 % 10/18/21 02:56 Eos % (Auto) 0.0 % 10/18/21 02:56 Baso % (Auto) 0.1 % 10/18/21 02:56 Neut # (Auto) 10.46 10^3/uL (1.8-7.7) H 10/18/21 02:56 Lymph # (Auto) 1.1 10^3/uL (0.8-4.8) 10/18/21 02:56 Davis # (Auto) 0.5 10^3/uL (0.2-0.9) 10/18/21 02:56 Eos # (Auto) 0.0 10^3/uL (0.0-0.8) 10/18/21 02:56 Baso # (Auto) 0.0 10^3/uL (0.0-0.1) 10/18/21 02:56 Nucleated RBC % (auto) 0 % 10/18/21 02:56 Nucleated RBCs # 0.0 /100WBC 10/18/21 02:56 Sodium 138 mmol/L (136-145) 10/17/21 02:39 Potassium 4.2 mmol/L (3.5-5.1) 10/17/21 02:39 Chloride 103 mmol/L (98-107) 10/17/21 02:39 Carbon Dioxide 25 mmol/L (22-29) 10/17/21 02:39 Anion Gap 14.2 (5-19) 10/17/21 02:39 BUN 16 mg/dL (6-20) 10/17/21 02:39 Creatinine 0.7 mg/dL (0.7-1.2) 10/17/21 02:39 GFR Calculation 116.7 mL/min (90-130) 10/17/21 02:39 Glucose 169 mg/dL (65-115) H 10/17/21 02:39 POC Glucose 161 mg/dL (70-110) H 10/18/21 06:32 Estimat Average Glucose 140 10/16/21 08:03 Hemoglobin A1c 6.5 % (4.0-6.0) H 10/16/21 08:03 Calculated Osmolality 291 mOsm/kg (285-295) 10/17/21 02:39 Lactic Acid 1.1 mmol/L (0.5-2.2) 10/16/21 08:58 Calcium 9.2 mg/dL (8.5-10.5) 10/17/21 02:39 Total Bilirubin 0.4 mg/dL (0.15-1.2) 10/17/21 02:39 AST 11 U/L (0-40) 10/17/21 02:39 ALT 18 U/L (0-41) 10/17/21 02:39 Alkaline Phosphatase 57 IU/L (40-130) 10/17/21 02:39 C-Reactive Protein 141.7 mg/L (0.0-4.9) H 10/16/21 08:03 Total Protein 7.0 g/dL (6.6-8.7) 10/17/21 02:39 Albumin 3.7 g/dL (3.5-5.2) 10/17/21 02:39 Globulin 3.3 g/dL (1.3-4.6) 10/17/21 02:39 TSH 1.89 uIU/mL (0.27-4.20) 10/16/21 08:03 Urine Color Yellow (Yellow) 10/16/21 08:03 Urine Appearance Sl hazy (CLEAR) 10/16/21 08:03 Urine pH 5 (5-7) 10/16/21 08:03 Ur Specific [place] 1.025 (1.005-1.030) 10/16/21 08:03 Urine Protein 1+ (Negative) H 10/16/21 08:03 Urine Glucose (UA) 4+ (Normal) H 10/16/21 08:03 Urine Ketones 1+ (Negative) H 10/16/21 08:03 Urine Blood 2+ (Negative) H 10/16/21 08:03 Urine Nitrate Negative (Negative) 10/16/21 08:03 Urine Bilirubin Neg (Negative) 10/16/21 08:03 Urine Urobilinogen Norm mg/dL (Negative) 10/16/21 08:03 Ur Leukocyte Esterase Negative (Negative) 10/16/21 08:03 Urine RBC 5-10 /hpf (0-2) H 10/16/21 08:03 Urine WBC 0-4 /hpf (0-5) H 10/16/21 08:03 Ur Squamous Epith Cells 0-4 /hpf (0-5) H 10/16/21 08:03 Amorphous Sediment 2+ /hpf 10/16/21 08:03 Urine Bacteria Trace /hpf (NONE) 10/16/21 08:03 Urine Mucus 3+ /hpf 10/16/21 08:03 Procedures Performed Incision and drainage of scrotal abscess Hospitalist consultation for medical management IV antibiotics Vitals Last Vital Signs Temp 98.6 F 10/18/21 03:48 Pulse 89 10/18/21 08:30 Resp 17 10/18/21 08:30 BP 123/73 10/18/21 03:48 Pulse Ox 96 10/18/21 08:30 Discharge Plan Discharge Patient Disposition: Home Condition: Stable Prescriptions: New metformin 500 mg tablet 500 mg PO BID Qty: 60 0RF levofloxacin 500 mg tablet 500 mg PO DAILY 10 Days Qty: 10 1RF Continued hydrocodone-acetaminophen 10-325 mg tablet 1 tab PO Q4H PRN (Reason: Pain) 0RF gabapentin 300 mg Capsule 300 mg PO TID 0RF albuterol sulfate 90 mcg/actuation HFA aerosol inhaler 2 puff INHALATION Q6H PRN (Reason: Shortness Of Breath) 0RF Discharge Orders: Discharge Order (Routine); Ordered 10/18/21 Ordered By: Bautista Mc Referrals: Bautista Mc MD [Physician] - 10/20/21 (Dressing change will call pt with appointment info ) Ronak Jones MD [Hospitalist] - 10/23/21 2:45 pm ([place] [id number]) Discharge Diet: Diabetic Discharge Activity: Increase activity as tolerated Patient Instructions: Metformin (By mouth), Levofloxacin (By mouth), Epididymitis (GEN), Opioid Safety Activity Restrictions/Additional Instructions: Hospitalist instructions: Please arrange for follow-up with primary care provider in 3 to 5 days, elevated A1c at 6.5 Follow a consistent carb diet. Please educate on diet prior to discharge. Urologist instructions: Daily dressing changes as instructed Call for fevers, chills, foul drainage. We will see in the office on Saturday the for wound check. Please call the hospital packing and stamping machine operator after hours if you have any concerns or questions, they can reach me. Discharge Attestations Time Spent in Discharge Care*: less than 30 min Status at Discharge: Overall status at discharge: patient is progressing back to baseline Quality Metrics Clinical Quality Measures [ No reported AMI, CVA or VTE this stay] Coding Level of Care Code Acute Chg FW DC note Diagnoses Acute epididymitis N45.1 Hyperglycemia R73.9 Chronic back pain M54.9; G89.29 Scrotal abscess N49.2
[2021-10-18] MEDS: gabapentin 300 mg Capsule PO (08:51)
[2021-10-18] MEDS: doxycycline 100 mg Tablet PO (08:51)
[2021-10-18 13:19] VITALS: PULSE 89; RESP 17; O2SAT 96
== END 2021-10-18 12:45 | disposition home or self-care (01) | DRG 718 ==
LOC: ER 10:28 → MEDSURG 10:57
PROVIDERS: Internal Medicine; Physician Assistant; Admitting Provider Urology; Emergency Provider Family Medicine; Visit Provider Urology
PROC: 0V950ZZ Drainage of Scrotum, Open Approach (ICD-10-PCS; principal; 2021-10-17 12:30)
DX: N45.1 Epididymitis (principal); R73.9 Hyperglycemia, unspecified; Z83.3 Family history of diabetes mellitus; G89.29 Other chronic pain; M54.9 Dorsalgia, unspecified
CPT/HCPCS: 36415; 36416; 76870; 80053; 81001; 82962; 83036; 83605; 84443; 85025; 86140; 87040; 87070; 87075; 87077; 87186; 87205; 96365; 96367; 99285; A6446; J0696; J1100; J1885; J2060; J2270; J2405; J2704; J3010; J3370; J3490; J7030; J7050